=== PATIENT | female | born 1965 | race Caucasian/White ===

== ENCOUNTER 2020-01-03 10:25 | Emergency (ER) | payer BC ==
[~2020-01-03] VITALS: Ht 170.2 cm; Wt 120.8 kg
[2020-01-03 10:25] VITALS: BP 145/86
[~2020-01-03 10:25] MED LIST: ALBU0.63 NEB; ATOR10TA PO; BENZ100C PO; CHOL10003 PO; CYCL1DRO EACHEYE; HYDR12.572 PO; LABE200T4 PO; PRED20TA PO; PROM118S5 PO; RANI-376 PO; ZOLP5TAB PO
[2020-01-03] MEDS ORDERED: KETOROLAC 60 MG/2 ML VIAL. IM ONE (11:00)
[2020-01-03] MEDS ORDERED: ORPHENADRINE CITRATE 60 MG/2 ML VIAL. IM ONE (11:00)
--- NOTE | 2020-01-03 11:19 | PHYS DOC ---
Past History Past Medical History: Anemia, GERD, Hypertension, Other Additional Past Medical Histor: R hip bursitis and sciatica Past Surgical History: Alcohol Use: None General Adult EDM: Chief Complaint: LOWER EXT PAIN HPI: HPI: Patient is a 54 year old female with history of hypertension, GERD, anemia, R hip bursitis and sciatica who presents with complaining of right lower back pain. Patient states she started to have aerobic exercise several weeks ago and for the last 5 weeks has had right lower back pain with radiation to right thigh as an aching pain. Patient states she took several different muscle relaxant course of prednisone tapering, ibuprofen and diclofenac partial improvement of her pain. Patient states she applied ice and cold on her back intermittently. Patient complaining of decrease of sensation of right leg and denies urine and bowel incontinence, abdominal pain, fever and chills, urinary symptom. Patient states she had severe pain this morning and was not able to get out of the bed and took a leftover of Lortab belonged to several years ago with partial improvement of her pain /10. Patient complaining of muscle spasm at the same time. Review of Systems: Review of Systems: Constitutional: Denies fever or chills Eyes: Denies change in visual acuity HENT: Denies nasal congestion or sore throat Respiratory: Denies cough or shortness of breath Cardiovascular: Denies chest pain or edema GI: Denies abdominal pain, nausea, vomiting, bloody stools or diarrhea : Denies dysuria Musculoskeletal: Reports back pain and joint pain Integument: Denies rash Neurologic: Denies headache, focal weakness, reports sensory changes Endocrine: Denies polyuria or polydipsia Lymphatic: Denies swollen glands Psychiatric: Denies depression or anxiety Heart Score: Risk Factors: Risk Factors: DM, Current or recent (<one month) smoker, HTN, HLP, family history of CAD, obesity. Risk Scores: Score 0 - 3: 2.5% MACE over next 6 weeks - Discharge Home Score 4 - 6: 20.3% MACE over next 6 weeks - Admit for Clinical Observation Score 7 - 10: 72.7% MACE over next 6 weeks - Early Invasive Strategies Current Medications: Current Meds: Current Medications Medications (Trade) Dose Ordered Sig/Nancy Start Time Stop Time Status Last Admin Dose Admin Ketorolac Tromethamine (Toradol Im) 60 mg 1X ONCE 01/03/20 11:00 01/03/20 11:09 DC 01/03/20 11:10 60 MG Orphenadrine Citrate (Norflex) 60 mg 1X ONCE 01/03/20 11:00 01/03/20 11:09 DC 01/03/20 11:11 60 MG Allergies: Allergies: Allergies Coded Allergies Type Severity Reaction Last Updated Verified fenfluramine Allergy Intermediate HIVES 04/15/15 No iron dextran complex Allergy Intermediate JOINT PAIN 04/15/15 Yes penicillin Allergy Intermediate HIVES 04/15/15 Yes Physical Exam: PE: Constitutional: Well developed, well nourished, mild distress, non-toxic appearance. [] HENT: Normocephalic, atraumatic. Eyes: PERRLA, EOMI, conjunctiva normal, no discharge. [] Neck: Normal range of motion, no tenderness, supple, no stridor. [] Cardiovascular:Heart rate regular rhythm, no murmur [] Lungs & Thorax: Bilateral breath sounds clear to auscultation [] Abdomen: Bowel sounds normal, soft, no tenderness, no masses, no pulsatile masses. [] Skin: Warm, dry, no erythema, no rash. [] Back: Patient was laying flat on the bed in supine position, no midline tenderness, right paraspinal spasm and tenderness, no CVA tenderness Extremities: No tenderness, no cyanosis, no clubbing, ROM intact, no edema. [] Neurologic: Alert and oriented X 3, no focal weakness, decrease of sensation of right lower extremity. Psychologic: Affect normal, judgement normal, mood normal. [] Current Patient Data: Vital Signs: Vital Signs Date Time Temp Pulse Resp B/P (MAP) Pulse Ox O2 Delivery O2 Flow Rate FiO2 01/03/20 10:25 97.8 66 18 145/86 (105) 97 Room Air EKG: EKG: [] Radiology/Procedures: Radiology/Procedures: [address] [address] IMAGING REPORT Signed PATIENT: VIOLETA FITCH ACCOUNT: [id number] : 1965 LOCATION: ER AGE: 54 SEX: F EXAM STATUS: REG ER ORD. PHYSICIAN: JANE MCBRIDE MD REASON: Right hip painX 5 WEEKS WORSE TODAY, NO KNOWN INJURY PROCEDURE: HIP RIGHT 2V WITH PELVIS HIP RIGHT 2V WITH PELVIS INDICATION: Right hip pain, progressive today COMPARISON: None. FINDINGS: No displaced fracture or malalignment. Mild bilateral hip arthrosis. Bony mineralization is normal for the patient's age. No significant soft tissue abnormality. No radiopaque foreign body. IMPRESSION: 1. No displaced fracture or malalignment. 2. Mild bilateral hip arthrosis. Electronically signed by: Arsenio Grace MD (01/03/2020 12:05 PM) [id number] DICTATED AND SIGNED BY: ARSENIO GRACE MD DATE: 01/03/20 [id number] CC: JANE MCBRIDE MD; DARRYL ABAD ~ Course & Med Decision Making: Course & Med Decision Making Pertinent Imaging studies reviewed. (See chart for details) Evaluation of patient in ER showed 54-year-old male patient with complaining of low back pain with radiation to right thigh for several weeks that getting worse today. Patient had subjective paresthesia of right lower extremity and severe low back pain without midline tenderness. Patient treated with Toradol and Norflex without improvement of her pain but felt better after IM shot of fentanyl and oral Zofran. X-ray of right hip and pelvis was unremarkable. Patient was advised to follow-up with her primary care physician for MRI of her back. Patient did not want to have CT of lumbar sacral area in ER. Patient also did not have UA in ER. I've spoken with the patient and/or caregivers. I've explained the patient's condition, diagnosis and treatment plan based on information available to me at this time. I've answered the patient's and/or caregivers questions and addressed any concerns. The patient and/or caregivers have a good understanding the patient's diagnosis, condition and treatment plan as can be expected at this point. Vital signs have been stabilized. The patient's condition is stable for discharge from the emergency department. The patient will pursue further outpatient evaluation with her primary care provider or other designated consulting physician as outlined in the discharge instructions. Patient and/or caregivers are agreeable to this plan of care and follow-up instructions have been explained in detail. The patient and/or caregivers have received these instructions in written format and expressed understanding of these discharge instructions. The patient and her caregivers are aware that if any significant change in condition or worsening of symptoms should prompt him to immediately return to this of the closest emergency department. If an emergent department is not readily available I would encourage him to call 911. Grzegorz Disclaimer: Grzegorz Disclaimer: This electronic medical record was generated, in whole or in part, using a voice recognition dictation system. Departure Departure: Impression: Primary Impression: Sciatica of right side Disposition: HOME, SELF-CARE (at 1218) Condition: STABLE Referrals: DARRYL ABAD (PCP) Patient Instructions: Sciatica Additional Instructions: Apply ice on your back Follow-up with your primary care physician in 2-3 days for possible MRI of lumbar spine and referral to back specialist Return to ER if not getting better Thank you for visiting [facility] [place]. We appreciate you trusting us with your care. If any additional problems come up don't hesitate to return to visit us. Please follow up with your primary care provider so they can plan additional care if needed and know about the problem that you had. If symptoms worsen come back to the Emergency Department. Any concerning symptoms that start such as chest pain, shortness of air, weakness or numbness on one side of the body, running high fevers or any other concerning symptoms return to the ER. Scripts Methylprednisolone (MEDROL) 4 Mg Tab.ds.pk 1 PKG PO UD for inflammation, #1 PKG Prov: JANE MCBRIDE MD 01/03/20 Hydrocodone Bit/Acetaminophen (NORCO 5-325 TABLET) 1 Each Tablet 1 TAB PO PRN Q6HRS PRN for PAIN, #14 TAB 0 Refills Prov: JANE MCBRIDE MD 01/03/20 Cyclobenzaprine Hcl (CYCLOBENZAPRINE HCL) 10 Mg Tablet 1 TAB PO TID for pain, #30 TAB Prov: JANE MCBRIDE MD 01/03/20 JANE MCBRIDE MD Jan 03, 2020 11:19
[2020-01-03] MEDS ORDERED: ONDANSETRON ODT 4 MG TAB.RAPDIS PO ONE (11:30)
--- NOTE | 2020-01-03 12:08 | RAD ---
HIP RIGHT 2V WITH PELVIS INDICATION: Right hip pain, progressive today COMPARISON: None. FINDINGS: No displaced fracture or malalignment. Mild bilateral hip arthrosis. Bony mineralization is normal for the patient's age. No significant soft tissue abnormality. No radiopaque foreign body. IMPRESSION: 1. No displaced fracture or malalignment. 2. Mild bilateral hip arthrosis. Electronically signed by: Arsenio Grace MD (01/03/2020 12:05 PM) [id number]
[2020-01-03] MEDS ORDERED: METH4TAB2 PO (12:21)
[2020-01-03] MEDS ORDERED: CYCL-331 PO (12:21)
[2020-01-03] MEDS ORDERED: HYDR-3165 PO (12:21)
== END 2020-01-03 12:25 | disposition home or self-care (01) ==
LOC: ER 10:25
DX: M54.41 Lumbago with sciatica, right side (principal); K21.9 Gastro-esophageal reflux disease without esophagitis; I10 Essential (primary) hypertension; Z86.2 Personal history of diseases of the blood and blood-forming organs and certain disorders involving the immune mechanism; Z98.890 Other specified postprocedural states; Z88.0 Allergy status to penicillin; Z88.8 Allergy status to other drugs, medicaments and biological substances
CPT/HCPCS: 73502; 96372; 99284; J1885; J2360; J3010; Q0162

== ENCOUNTER → 2020-04-20 | Outpatient (CLI) | payer BC ==
[~2020-04-20] MED LIST changes: +CYCL-331 PO; +HYDR-3165 PO; +METH4TAB2 PO
--- NOTE | 2020-04-24 17:30 | RAD ---
DATE: 04/20/2020 11:35 AM EXAM: MAMMO MICHAEL SCREENING BILATERAL HISTORY: Screening COMPARISON: 04/25/2019 Bilateral CC and MLO views of the breasts were performed. Bilateral breast tomosynthesis was performed in CC and MLO projections. This study was interpreted with the benefit of Computerized Aided Detection (CAD). FINDINGS: Breast Density: FATTY The Breast Parenchyma is primarily fatty replaced. Breast parenchyma level density A. No suspicious masses, microcalcifications or architectural distortion is present to suggest malignancy in either breast. The visualized axillae are unremarkable. IMPRESSION: No mammographic evidence of malignancy. BI-RADS CATEGORY: 1 NEGATIVE RECOMMENDED FOLLOW-UP: 12M 12 MONTH FOLLOW-UP Annual screening mammography is recommended, unless clinically indicated sooner based on symptoms or change in physical exam. PQRS compliance statement: Patient information was entered into a reminder system with a target due date for the next mammogram. Mammography is a sensitive method for finding small breast cancers, but it does not detect them all and is not a substitute for careful clinical examination. A negative mammogram does not negate a clinically suspicious finding and should not result in delay in biopsying a clinically suspicious abnormality. "Our facility is accredited by the [employer] Mammography Program."
== END | disposition home or self-care (01) ==
LOC: MAMMO 11:27
PROVIDERS: ATTEND Physician Assistant Medical
DX: Z12.31 Encounter for screening mammogram for malignant neoplasm of breast (principal)
CPT/HCPCS: 77063; 77067

== ENCOUNTER → 2020-05-18 | Outpatient (CLI) | payer BC ==
--- NOTE | 2020-05-18 15:06 | RAD ---
Bone mineral density exam History: Screening, baseline, steroid use previously Comparison: None Findings: Bone mineral density examination utilizing DEXA was performed. Right hip bone mineral density of 936 mg/cm2 corresponds with a T score -0.2, Z score -0.3. The bone mineral density of the lumbar spine was 1.191 g/cm2 which corresponds with a T-score of 0.1, Z score -0.2. By [employer] on Osteoporosis criteria, a T score of 0 to-1 SD is considered to be within normal limits. A T score of -1 to -2.5 SD is considered osteopenia. A T score less than -2.5 SD is considered osteoporosis Impression: 1. There is normal bone density of the lumbar spine and the right hip. Electronically signed by: Ward Diehl MD (05/18/2020 3:03 PM) [id number]
== END | disposition home or self-care (01) ==
LOC: DXRAD 10:28
PROVIDERS: ATTEND Physician Assistant Medical
DX: Z13.820 Encounter for screening for osteoporosis (principal); Z78.0 Asymptomatic menopausal state
CPT/HCPCS: 77080

== ENCOUNTER → 2021-03-19 | Outpatient (CLI) | payer BC ==
--- NOTE | 2021-03-19 16:15 | RAD ---
MG BILAT SCREEN+MICHAEL 03/19/2021 10:40 AM INDICATION: Asymptomatic screening mammogram. COMPARISON: 04/20/2020, 04/25/2019, 03/22/2018 TECHNIQUE: 3D tomosynthesis was performed in CC and MLO projections. 2D views were obtained from the 3D data. CAD was utilized as needed. FINDINGS: Breast density: Category B: There are scattered areas of fibroglandular density. Right breast: There are no suspicious microcalcifications, masses or areas of architectural distortio n. Left breast: There are no suspicious microcalcifications, masses or areas of architectural distortion . Bilateral mammogram is compared to prior examinations appears unchanged. IMPRESSION: Negative bilateral mammogram. BI-RADS category: 1; Negative Recommendations: Recommend annual screening mammography in one year. Electronically signed by: Genny Brooks MD (03/19/2021 4:13 PM) [id number]
== END ==
LOC: MAMMO 10:25
PROVIDERS: ATTEND Physician Assistant Medical
DX: Z12.31 Encounter for screening mammogram for malignant neoplasm of breast (principal)
CPT/HCPCS: 77063; 77067